=== PATIENT | female | born 1965 | race American Indian/Alaskan Native ===

== ENCOUNTER 2017-12-09 07:56 | Emergency (ER) | payer BC ==
--- NOTE | 2017-12-09 08:47 | Cat Scan Report ---
CT scan of head without IV contrast: History: Blurred vision, double vision. Headache. Findings: Ventricles are normal in size and midline in location. No evidence of acute ischemia, hemorrhage or mass. No extra axial fluid collection. Normal brainstem and cerebellum. Normal sinuses and mastoid air cells. Impression: No acute intracranial abnormality.
--- NOTE | 2017-12-09 09:46 | Emergency Department Report ---
ED Headache HPI - General Chief Complaint: Eye Problems Stated Complaint: BLURRED VISION Time Seen by Provider: 12/09/17 09:14 Source: patient, family Exam Limitations: no limitations - History of Present Illness Initial Comments: Patient hair before that she is having blurred vision and double vision since 640 this morning and mild headache for one week. She says she has a problem with allergies. She is also complaining of bilateral leg swelling 1 month and she just moved from [place] and does not have a primary care doctor as yet. He said she went to urgent care here and they gave her water pill and it went down but the water pills were for 7 days. Pain is 1 out of 10 to had located frontally no alleviating or exacerbating factors. Patient says she has an appointment to have a sleep study done because she is not getting enough sleep and also for allergy testing today. Timing/Duration: episodic, other (1 month) Quality: mild, achy, pressure Head Injury Location: frontal Recent Head Trauma: occasional headaches Modifying Factors: improves with: movement, rest Associated Symptoms: fatigue, nasal drainage, vision changes. denies: confusion , facial pain, fever/chills, flushing, loss of consciousness, nausea/vomiting, nasal congestion, numbness in legs/feet, rash, seizures, sinus infection, stiff neck, weakness Allergies/Adverse Reactions: Allergies aspirin Allergy (Verified 12/09/17 08:18) Hives Penicillins Allergy (Verified 12/09/17 08:18) Hives Home Medications: Ambulatory Orders traMADol [Ultram 50 MG tab] 50 mg PO Q6HR PRN #20 tablet 12/09/17 ED Review of Systems ROS: Stated complaint: BLURRED VISION Other details as noted in HPI Constitutional: denies: chills, fever Eyes: vision change. denies: eye pain, eye discharge ENT: congestion. denies: ear pain, throat pain Respiratory: denies: cough, shortness of breath, SOB with exertion, SOB at rest , wheezing Cardiovascular: edema. denies: chest pain, palpitations, syncope Gastrointestinal: denies: abdominal pain, nausea, vomiting, diarrhea Genitourinary: denies: urgency, dysuria, discharge Musculoskeletal: arthralgia. denies: back pain, joint swelling, myalgia (both feet) Skin: denies: rash, lesions Neurological: paresthesias (both feet). denies: headache, weakness, numbness, confusion, abnormal gait ED Past Medical Hx - Past Medical History Previous Medical History?: No - Surgical History Past Surgical History?: Yes Additional Surgical History: R. ankle surgery - Family History Family history: hypertension - Social History Smoking Status: Never Smoker Substance Use Type: None - Medications Home Medications: Home Medications Medication Instructions Recorded Confirmed Last Taken Type traMADol [Ultram 50 MG tab] 50 mg PO Q6HR PRN #20 tablet 12/09/17 Unknown Rx ED Physical Exam - General Limitations: No Limitations General appearance: alert, in no apparent distress - Head Head exam: Present: atraumatic, normocephalic, normal inspection, other (normal exam) - Eye Eye exam: Present: normal appearance, PERRL, EOMI. Absent: nystagmus, periorbital swelling, periorbital tenderness Pupils: Present: normal accommodation - Expanded Eye Exam Expanded Eyelids: Normal Inspection: Right (normal bilaterally) Pupils: Regular, Round: Bilateral, Reactive: Bilateral Sclera/Conjunctival: Normal Inspection: Bilateral Anterior chamber: Normal Inspection: Bilateral Posterior chamber: Normal Inspection: Bilateral Visual acuity (R) = 20/: 20 (20/30 both eyes) Visual acuity (L) = 20/: 40 With correction: No - ENT ENT exam: Present: normal exam, normal orophraynx, mucous membranes moist, TM's normal bilaterally, normal external ear exam, other (bilateral nasal mucosa pale boggy with clear drainage. Maxillary and frontal sinus is nontender to palpate) - Neck Neck exam: Present: normal inspection, full ROM, other (no C-spine tenderness). Absent: tenderness, lymphadenopathy - Respiratory Respiratory exam: Present: normal lung sounds bilaterally. Absent: respiratory distress, chest wall tenderness - Cardiovascular Cardiovascular Exam: Present: regular rate, normal rhythm, normal heart sounds. Absent: systolic murmur, diastolic murmur - GI/Abdominal GI/Abdominal exam: Present: soft, normal bowel sounds. Absent: distended, tenderness, guarding, rebound, rigid, organomegaly, mass - Extremities Exam Extremities exam: Present: normal inspection, full ROM, normal capillary refill , other (patient with bilateral leg swelling otherwiseNo cce. + 2 pulses in all extremities, no neurovascular compromise. Negative Homans sign and no motor or sensory deficit.). Absent: tenderness, pedal edema, joint swelling, calf tenderness - Back Exam Back exam: Present: normal inspection, full ROM, other (patient ambulates without any difficulties.). Absent: tenderness, vertebral tenderness, rash noted - Neurological Exam Neurological exam: Present: alert, oriented X3, normal gait, motor sensory deficit, reflexes normal, other (no focal neurological deficits) - Psychiatric Psychiatric exam: Present: normal affect, normal mood - Skin Skin exam: Present: warm, dry, intact, normal color. Absent: rash ED Course Vital Signs 12/09/17 12/09/17 08:17 08:50 Temperature 97.9 F Pulse Rate 88 Respiratory 20 18 Rate Blood Pressure 134/90 O2 Sat by Pulse 98 99 Oximetry - Reevaluation(s) Reevaluation #1: 12/09/17 11:31 Given [place] 5/21 tablets by mouth for pain. ED Medical Decision Making - Radiology Data Radiology results: report reviewed Patient had CT scan of the head without contrast that was dictated by radiologist and report reviewed by myself. Serum results below. NEMO ANGELO Female : 1965 MedRec# [id number] 12/09/17 10:28 - Radiology Dept. Note by DENIS HIGH Acct Num: [id number] : 1965 Patient Age: 52 VASCULAR LAB.PRELIMINARY REPORT. BLE VENOUS DUPLEX DONE. NO EVIDENCE OF DVT/SVT IN VESSELS VISUALIZED. Initialized on 12/09/17 10:28 - END OF NOTE Venous Doppler ultrasound bilateral lower extremity negative for SVT and DVT this is preliminary report from radiologist which was reviewed by myself and final report to follow. Patient: NEMO ANGELO MR#: [id number] : 1965 Acct:[id number] Age/Sex: 52 / F ADM Date: 12/09/17 Loc: ED Attending Dr: Ordering Physician: RHETT MERCER Date of Service: 12/09/17 Procedure(s): CT head/brain wo con Accession Number(s): [id number] cc: RHETT MERCER CT scan of head without IV contrast: History: Blurred vision, double vision. Headache. Findings: Ventricles are normal in size and midline in location. No evidence of acute ischemia, hemorrhage or mass. No extra axial fluid collection. Normal brainstem and cerebellum. Normal sinuses and mastoid air cells. Impression: No acute intracranial abnormality. Transcribed By: PTP Dictated By: RISSA CONWAY MD Electronically Authenticated By: RISSA CONWAY MD Signed Date/Time: 12/09/17827 DD/ 6 TD/TT: 12/09/17827 - Medical Decision Making This is a 52-year-old female here report that she is new to town and she has been having swelling to her legs for one month mild headache frontally for one week and woke up this morning with blurred vision and double vision and she wears glasses which she says she just got renewed. Patient was seen and examined by myself and her physical exam is normal except she has bilateral lower extremity swelling without any erythema, bilateral pedal pulses are normal and 2+ without any neurovascular compromise. Patient is wearing compression hose which she took off her exam and placed back on after Doppler studies. Neurological exam is normal and her eye exam including funduscopic exam is normal. Patient had CT scan of the head which came back negative for any intracranial or extracranial abnormality and bilateral lower extremity venous Doppler which is negative for SVT or DVT. I explained to patient her diagnosis and treatment plan and I told her that I will refer her to primary care doctor, hydrotechnical specialist and ophthalmologists and she should keep her appointment for sleep study because of fatigue can also cause eye problem and also keep her appointment for allergy tested today. Patient given [place] 5/325 one tablet when necessary emergency room and her vital signs are stable she is afebrile pain is controlled and discharged home in stable condition with prescription for Ultram. She said all medication that she takes for allergic rhinitis does not work site told her that structural steel worker apprentice will recommend something for her she might need to get allergy shot. Critical care attestation.: If time is entered above; I have spent that time in minutes in the direct care of this critically ill patient, excluding procedure time. ED Disposition Clinical Impression: Blurred vision, bilateral, Edema of both legs, Arthralgia of both feet Allergic rhinitis Qualifiers: Allergic rhinitis trigger: unspecified Allergic rhinitis seasonality: unspecified Qualified Code(s): J30.9 - Allergic rhinitis, unspecified Disposition: - TO HOME OR SELFCARE Is pt being admited?: No Does the pt Need Aspirin: No Condition: Stable Instructions: Arthralgia (ED), How to Give a Foot Massage (GEN), Plantar Fasciitis (ED), Leg Edema (ED), Acute Headache (ED), Blurred Vision (ED) Additional Instructions: Please follow up with primary care physician, see discharge information paperwork for details Follow up with volleyball player as referred While up with product assurance engineer as referred. If he condition worsens, return to the emergency room otherwise follow up with specialists and they can refer you for outpatient Continue to wear compression hose and keep the feet elevated while sitting or lying. Referrals: MARISSA BATES JR, MD [Staff Physician] - 3-5 Days TAIWO PRICE MD [Staff Physician] - 3-5 Days DIPTI JONES MD [Staff Physician] - 3-5 Days ASHWIN BORDEN DPM [Staff Physician] - 3-5 Days Forms: Accompanied Note, Work/School Release Form(ED)
[2017-12-09] MEDS ORDERED: NORCO 5/325 PO ONE (11:31)
[2017-12-09 11:53] VITALS: BP 144/74
== END 2017-12-09 11:51 | disposition home or self-care (01) ==
LOC: ED 07:56
DX: H53.8 Other visual disturbances (principal); R60.0 Localized edema; J30.9 Allergic rhinitis, unspecified; R51 Headache; Z88.0 Allergy status to penicillin; Z88.6 Allergy status to analgesic agent
CPT/HCPCS: 70450; 93970; 99284